=== PATIENT | male | born 1985 | race Caucasian/White ===

== ENCOUNTER 2017-11-01 17:44 | Emergency (ER) | payer SELFPAY ==
[~2017-11-01] VITALS: Ht 180.3 cm; Wt 92.1 kg
[2017-11-01] MEDS ORDERED: traMADol 50 MG TABLET PO ONE (18:45)
[2017-11-01] MEDS ORDERED: IBUPROFEN 600 MG TABLET. PO ONE (18:45)
[2017-11-01] MEDS ORDERED: CEPHALEXIN 250 MG CAPSULE PO ONE (18:45)
[2017-11-01] MEDS ORDERED: TRAM-48 PO (18:48)
[2017-11-01] MEDS ORDERED: IBUP600T16 PO (18:48)
[2017-11-01] MEDS ORDERED: CEPH-264 PO (18:48)
--- NOTE | 2017-11-01 18:48 | PHYS DOC ---
Past History Past Medical History: Other Past Surgical History: No Surgical History Alcohol Use: Rarely Drug Use: Marijuana Adult General Chief Complaint Chief Complaint: DENTAL PROBLEM HPI HPI Patient is a 32-year-old gentleman who presents here today secondary to left upper premolar dental pain and swelling to his left cheek. Patient denies any other symptomatology. Patient reportedly work secondary to the pain. Patient denies any fevers shakes chills nausea vomiting diarrhea chest pain shortness of breath cough cold rhinorrhea abdominal pain dysuria frequency urgency. Patient's only past medical history significant for Crohn's colitis. Patient denies any hypertension diabetes lung liver or kidney problems. Patient reports he smokes for his Crohn's colitis. Patient does not drink or do drugs. Review of systems: Constitutional: Denies fever or chills Eyes: Denies change in visual acuity, redness, or eye pain HENT: Denies nasal congestion or sore throat Respiratory: Denies cough or shortness of breath All other systems were reviewed and found to be within normal limits, except as documented in this note. Physical exam: Constitutional: Well developed, well nourished, no acute distress, non-toxic appearance. HENT: Normocephalic, atraumatic, bilateral external ears normal, nose normal. Eyes: PERRLA, EOMI, conjunctiva normal, no discharge. Neck: Normal range of motion, no tenderness, supple, no stridor. Cardiovascular: Heart rate regular rhythm, Lungs & Thorax: Bilateral breath sounds clear to auscultation Abdomen: No abdominal distention. Skin: Warm, dry, no erythema, no rash. Back: Normal spinal curvature Extremities: No tenderness, no cyanosis, no clubbing, ROM intact, no edema. Neurologic: Alert and oriented X 3, normal motor function, normal sensory function, no focal deficits noted. Psychologic: Affect normal, judgement normal, mood normal. Patient's ER physical exam was most remarkable: Soft tissue swelling to his left upper cheek. Patient's left upper premolars appear to be erythematous with fluctuance and fullness in that area. Patient does have significant dental caries at the point of tenderness. Assessment and plan: 1. Dental caries. Dental abscess. Patient be started on Keflex be given ibuprofen and Ultram to assist with the pain. Patient was instructed to follow- up with his primary care physician/dentist for definitive management of his dental abscess. Patient has no signs or symptoms consistent with a significant abscess. Patient has no trismus, no airway complex, no stridor. Patient be discharged home in stable condition. Allergies Allergies Allergies Coded Allergies Type Severity Reaction Last Updated Verified No Known Drug Allergies 11/01/17 No Current Patient Data Vital Signs Vital Signs Date Time Temp Pulse Resp B/P (MAP) Pulse Ox O2 Delivery O2 Flow Rate FiO2 11/01/17 17:57 98.0 84 16 99 Room Air EKG EKG [] Radiology/Procedures Radiology/Procedures [] Course & Med Decision Making Course & Med Decision Making Pertinent Labs and Imaging studies reviewed. (See chart for details) [] Dragon Disclaimer Dragon Disclaimer This electronic medical record was generated, in whole or in part, using a voice recognition dictation system. Departure Departure: Impression: Primary Impression: Dental abscess Disposition: 01 HOME, SELF-CARE Condition: STABLE Referrals: PCP,NO (PCP) Patient Instructions: Dental Abscess Scripts Tramadol Hcl (ULTRAM) 50 Mg Tablet 50 MG PO PRN Q6HRS Y for PAIN, #20 TAB Prov: JOSÉ MIGUEL CAMPBELL MD 11/01/17 Cephalexin (KEFLEX) 500 Mg Capsule 1 CAP PO TID, #30 CAP Prov: JOSÉ MIGUEL CAMPBELL MD 11/01/17 Ibuprofen (IBUPROFEN) 600 Mg Tablet 600 MG PO QID Y for PAIN, #20 Prov: JOSÉ MIGUEL ACMPBELL MD 11/01/17 JOSÉ MIGUEL CAMPBELL MD Nov 01, 2017 18:48
[2017-11-01 19:06] VITALS: BP 147/95
== END 2017-11-01 19:12 | disposition home or self-care (01) ==
LOC: ER 17:44
DX: K04.7 Periapical abscess without sinus (principal); K02.9 Dental caries, unspecified; F17.200 Nicotine dependence, unspecified, uncomplicated; F12.10 Cannabis abuse, uncomplicated
CPT/HCPCS: 99284